=== PATIENT | male | born 1995 | race Two or more races ===

== ENCOUNTER 2017-10-09 13:09 | Emergency (ER) | payer OTHER ==
[~2017-10-09] VITALS: Ht 170.2 cm; Wt 56.7 kg
[2017-10-09 14:53] VITALS: BP 127/65
== END 2017-10-09 14:53 | disposition home or self-care (01) ==
LOC: ED 13:09
DX: J06.9 Acute upper respiratory infection, unspecified (principal); J02.9 Acute pharyngitis, unspecified; M79.1 Myalgia

== ENCOUNTER 2017-11-11 20:08 | Emergency (ER) | payer OTHER | END 2017-11-11 21:27 | disposition left against medical advice (07) | LOC: ED 20:08 | DX: Z53.21 Procedure and treatment not carried out due to patient leaving prior to being seen by health care provider (principal) ==

== ENCOUNTER 2018-04-24 01:32 | Emergency (ER) | payer OTHER ==
[~2018-04-24] VITALS: Ht 170.2 cm; Wt 62.1 kg
[2018-04-24 01:37] VITALS: Ht 170.2 cm; Wt 62.1 kg
[2018-04-24 03:36] VITALS: BP 138/72
== END 2018-04-24 03:36 | disposition home or self-care (01) ==
LOC: ED 01:32
DX: S60.862A Insect bite (nonvenomous) of left wrist, initial encounter (principal); L03.114 Cellulitis of left upper limb
CPT/HCPCS: J0690

== ENCOUNTER 2019-03-24 12:20 | Emergency (ER) | payer OTHER ==
[~2019-03-24] VITALS: Ht 170.2 cm; Wt 60.5 kg
[2019-03-24 12:31] VITALS: Ht 170.2 cm; Wt 60.5 kg
[2019-03-24 14:52] VITALS: BP 110/68
== END 2019-03-24 14:52 | disposition home or self-care (01) ==
LOC: ED 12:20
DX: S63.91XA Sprain of unspecified part of right wrist and hand, initial encounter (principal); F41.9 Anxiety disorder, unspecified; Z98.890 Other specified postprocedural states; W22.01XA Walked into wall, initial encounter; Y93.89 Activity, other specified; Y92.89 Other specified places as the place of occurrence of the external cause; Y99.8 Other external cause status
CPT/HCPCS: A4570

== ENCOUNTER 2019-12-31 17:10 | Emergency (ER) | payer OTHER ==
[~2019-12-31] VITALS: Ht 177.8 cm; Wt 60.3 kg
[2019-12-31 17:54] VITALS: BP 106/72; Ht 177.8 cm; Wt 60.3 kg
== END 2019-12-31 18:14 | disposition home or self-care (01) ==
LOC: ED 17:10
DX: R22.0 Localized swelling, mass and lump, head (principal); R04.0 Epistaxis

== ENCOUNTER 2020-06-27 18:40 | Emergency (ER) | payer OTHER ==
[~2020-06-27] VITALS: Ht 172.7 cm; Wt 59.4 kg
[2020-06-27 18:44] VITALS: Ht 172.7 cm; Wt 59.4 kg
[2020-06-27 19:58] VITALS: BP 114/64
== END 2020-06-27 19:58 | disposition home or self-care (01) ==
LOC: ED 18:40
DX: S01.112A Laceration without foreign body of left eyelid and periocular area, initial encounter (principal); X58.XXXA Exposure to other specified factors, initial encounter; Y93.89 Activity, other specified; Y92.89 Other specified places as the place of occurrence of the external cause; Y99.8 Other external cause status
CPT/HCPCS: 90715; J2001